=== PATIENT | female | born 1955 | race African-American/Black ===

== ENCOUNTER 2016-10-12 23:29 | Inpatient (IN) | payer MEDICAID ==
[~2016-10-12] VITALS: Ht 160 cm; Wt 49.9 kg
--- NOTE | ~2016-10-12 | CO ---
Unit #: [id number] #: [id number] Patient: DANYELL VALDEZ [id number] [address] [place], [place] [address] [id number] I MR#: [id number] NAME: DANYELL VALDEZ ROOM: 463 Age: 61 Sex: F Admission Date: 10/13/2016 : 1955 Attending Physician: Javier Govea M.D. Primary Care Physician: Primary Care Physician No Consultation Date: 10/13/2016 CONSULTATION REPORT PRIMARY REASON FOR CONSULTATION Acute cholecystitis. HISTORY OF PRESENT ILLNESS The patient is a 61-year-old woman, who presents to the emergency room with acute onset of epigastric abdominal pain radiating to the right back and flank. She denies any fevers or chills. She has had loss of appetite. She has had nausea and vomiting as well. There is no diarrhea. The pain is exacerbated by eating, relieved by nothing. She has not had any previous such symptoms. Radiology in the emergency room demonstrates acute cholecystitis with gallstones. REVIEW OF SYSTEMS A 10-point review is performed. This is negative other than what was already listed in the history of present illness. PAST MEDICAL HISTORY Significant for asthma. She has had no previous abdominal surgeries. MEDICATIONS See her nurse's notes. ALLERGIES She has no known medical allergies. SOCIAL HISTORY She denies alcohol or drug abuse. She is a smoker. FAMILY HISTORY Noncontributory. PHYSICAL EXAMINATION GENERAL: She is alert, in some mild abdominal discomfort. VITAL SIGNS: Temperature 97.9, pulse 72, respirations 18, blood pressure 194/96, she is 100% saturating on room air. HEENT: Pupils are equal and round. Extraocular motions are intact. NECK: Supple without adenopathy. HEART: Regular rate and rhythm. LUNGS: Clear to auscultation anteriorly. ABDOMEN: Soft. Tender in the right upper quadrant and epigastric area. There is some mild voluntary guarding. DIAGNOSTIC STUDIES LABORATORY RESULTS: Significant for a white blood cell count of 10.6. Unit #: [id number] #: [id number] Patient: DANYELL VALDEZ Liver function tests are within normal limits. IMAGING STUDIES: Ultrasound demonstrates cholecystitis with gallstones. ASSESSMENT AND PLAN The patient with acute onset of cholecystitis. I have discussed laparoscopic cholecystectomy with her, she is agreeable. This has been scheduled for today. Dictated by... Kenyatta Stanley/milagros TD: 10/14/2016 16:30 JOB #: [id number] CONSULTATION REPORT Page 1 of 1 X Javier Govea X CONSULTATION REPORT
--- NOTE | ~2016-10-12 | CR72 ---
[facility] A Service of [facility] & [facility] RADIOLOGY TEXT RESULTS PATIENT: DANYELL VALDEZ LOCATION: [facility] 463-01 : [birth year] UNIT #: [id number] AGE: [address]: Javier Govea SEX: F ORDER DR: [id number] [facility] [address] [facility]. [place], [place] [address] [id number] I MR#: [id number] Acc #: [id number] NAME: DANYELL VALDEZ : 1955 SEX: F STUDY DATE/TIME: 10/13/2016 2:40 UNIT: [facility] ROOM: [facility] STUDY DESCRIPTION: CR Chest Single View Portable Attending Physician: Javier Govea M.D. Ordering Physician: Dagoberto Grullon M.D. Primary Care Physician: No Primary Care Physician MEDICAL IMAGING REPORT This report is preliminary unless electronic signature is present EXAM Portable chest. HISTORY Chest pain and back pain for 2 days. FINDINGS Mild hyperinflation of both lungs. No infiltrates or effusions. Bilateral cervical ribs. Minimal right lower thoracic curve. Right shoulder prosthesis. IMPRESSION No acute findings. Mild hyperinflation of both lungs. Dictated by... Ambrosio Torres M.D. THIS IS AN ELECTRONICALLY VERIFIED REPORT Ambrosio Torres M.D. at 10/14/2016 4:48 AM ROSEANN/madeline TD: 10/13/2016 23:49 JOB #: [id number] MEDICAL IMAGING REPORT Page 1 of 1 COPY
--- NOTE | ~2016-10-12 | DS ---
Unit #: [id number] #: [id number] Patient: DANYELL VALDEZ [id number] [address] [address] [id number] I MR#: [id number] NAME: DANYELL VALDEZ ROOM: 46 Age: 61 Sex: F Admission Date: 10/13/2016 : 1955 Discharge Date: 10/16/2016 Attending Physician: Javier Govea M.D. Primary Care Physician: No Primary Care Physician DISCHARGE SUMMARY HISTORY AND EXAM Ms. Valdez is a 61-year-old female, presented to the emergency room with abdominal pain and was found to have acute cholecystitis. She was taken to the operating room by Dr. Govea, who did a laparoscopic cholecystectomy. Patient was afebrile throughout her hospital course but had abdominal distention and on the first postoperative day was unable to take adequate p.o. intake and had not regained bowel function. Bowels were stimulated, and her labs were rechecked. Labs were normal, and over the next 24 hours, she regained bowel function, was able to be advanced. At the time of discharge, she is afebrile. Her vital signs are stable. Her abdomen is soft. She is tolerating a regular diet. Her pathology showed no malignancy. She will be discharged home in stable condition today with instructions to undergo diet and activity as tolerated. She may shower, and she is to call [phone] for a followup appointment in 1-2 weeks. Prescription for hydrocodone was left for postop pain control. Dictated by... Shashi Seth M.D. RAMONA/angy TD: 10/16/2016 13:36 JOB #: [id number] DISCHARGE SUMMARY Page 1 of 1 X Shashi Seth MD X DISCHARGE SUMMARY
--- NOTE | ~2016-10-12 | CT2 ---
[facility] A Service of [facility] RADIOLOGY TEXT RESULTS PATIENT: DANYELL VALDEZ LOCATION: [facility] : 59 UNIT #: [id number] AGE: [address]: Javier Govea SEX: F ORDER DR: [id number] [place] [id number] [facility]. [place], [place] [address] [id number] I MR#: [id number] Acc #: [id number] NAME: DANYELL VALDEZ : 1955 SEX: F STUDY DATE/TIME: 10/13/2016 3:00 UNIT: [facility] ROOM: [facility] STUDY DESCRIPTION: CT Abd and Pelv W Cont Attending Physician: Javier Govea M.D. Ordering Physician: Dagoberto Grullon M.D. Primary Care Physician: Primary Care Physician No MEDICAL IMAGING REPORT This report is preliminary unless electronic signature is present EXAM CT abdomen and pelvis with IV contrast HISTORY Epigastric pain and back pain for 1 week. Nausea and vomiting. FINDINGS CT abdomen and pelvis was performed with IV contrast. This CT exam was performed with one or more of the following radiation dose reduction techniques: automatic exposure control, adjustment of mA and/or kV according to patient size, and iterative reconstruction. CT ABDOMEN: There is diffuse gallbladder wall thickening and moderate pericholecystic fluid and stranding, characteristic of cholecystitis. There are gallstones measuring up to 1.5 cm. Mild gallbladder distension and diffuse gallbladder wall mucosal enhancement. No biliary ductal dilatation. The liver, spleen, pancreas, kidneys, and adrenal glands are unremarkable. CT PELVIS: Normal appendix. No free fluid. The uterus and adnexa are unremarkable. No bowel dilatation. The urinary bladder is unremarkable. IMPRESSION 1. Cholecystitis with diffuse gallbladder wall thickening and pericholecystic fluid and diffuse gallbladder mucosal enhancement and mild gallbladder distension. 2. Gallstones measure up to 1.5 cm. 3. No acute findings in the remainder of the abdomen or pelvis. [facility] A Service [facility] RADIOLOGY TEXT RESULTS PATIENT: DANYELL VALDEZ LOCATION: [facility] : 59 UNIT #: [id number] AGE: [address]: Javier Govea SEX: F ORDER DR: Dictated by... Ambrosio Torres M.D. THIS IS AN ELECTRONICALLY VERIFIED REPORT Ambrosio Torres M.D. at 10/14/2016 4:49 AM ROSEANN/agatha TD: 10/13/2016 23:51 JOB #: [id number] MEDICAL IMAGING REPORT Page 1 of 1 COPY
--- NOTE | ~2016-10-12 | OR ---
Unit #: [id number] #: [id number] Patient: DANYELL VALDEZ [id number] [address] [place], [place] [address] [id number] I MR#: [id number] NAME: DANYELL VALDEZ ROOM: 463 Date of Procedure: 10/13/2016 Admission Date: 10/13/2016 Surgeon: Javier Govea M.D. : 1955 Attending Physician: Javier Govea M.D. OPERATIVE REPORT PREOPERATIVE DIAGNOSIS Acute cholecystitis. POSTOPERATIVE DIAGNOSIS Acute cholecystitis with intraperitoneal adhesions. PROCEDURE PERFORMED Laparoscopic cholecystectomy with adhesiolysis. ANESTHESIA General endotracheal. COMPLICATIONS None. ESTIMATED BLOOD LOSS Minimal. DESCRIPTION OF PROCEDURE After the patient was prepped and draped in usual fashion, 1 cm infraumbilical incision was made. A Veress needle was passed. The peritoneal cavity was insufflated in the usual fashion. A 5-mm port was placed. Under direct vision, an upper midline 11-mm port and two right upper quadrant 5-mm ports were placed. The gallbladder was inspected. It was acutely inflamed. The dome was grasped and retracted cephalad. There were dense adhesions to the right lobe of the liver and to the gallbladder consisting of omentum. Some of these were able to be stripped down bluntly, but the adhesions to the liver had to be taken down with sharp and electrocautery dissection in order to tear the capsule. Adhesions were all stripped down sequentially. The infundibulum was grasped, retracted, and exposed. The cystic duct dissected from surrounding tissues. The cystic artery was found just beneath and medial to this. The cystic duct was clipped doubly proximally, singly distally. The clips were not quite long enough to completely go across this. The 11-mm port was switched to a 12-mm port and the 12-mm stapler was brought forth, and the cystic duct was clipped doubly proximally, singly distally, and divided after the previous clips had been removed. The cystic artery was found just beneath and medial to this. This was clipped doubly proximally, singly distally, and divided. The gallbladder was taken off the bed using electrocautery and retrieved through the upper midline trocar site with an Endopouch. I did have to extend the incision about 1 cm to accommodate the large specimen. The right upper quadrant was inspected. There was no bleeding from the bed. Ports were removed under Unit #: [id number] #: [id number] Patient: DANYELL VALDEZ direct vision. There was no bleeding. The fascia at the upper midline trocar site was closed with 0 Vicryl. All wounds were closed with clips. All wounds were infiltrated with 0.5% Marcaine with epinephrine. Dressings were applied. The patient was taken to the recovery room in good condition. Dictated by... Kenyatta Stanley/milagros TD: 10/13/2016 14:00 JOB #: [id number] OPERATIVE REPORT Page 1 of 1 X Javier Govea PROCEDURE OPERATIVE NOTE
--- NOTE | ~2016-10-12 | US67 ---
[facility] A Service of [facility] & [facility] RADIOLOGY TEXT RESULTS PATIENT: DANYELL VALDEZ LOCATION: [facility] 463- : 59 UNIT #: [id number] AGE: [address]: Javier Govea SEX: F ORDER DR: [id number] [facility] [address] [facility]. [place], [place] [address] [id number] I MR#: [id number] Acc #: [id number] NAME: DANYELL VALDEZ : 1955 SEX: F STUDY DATE/TIME: 10/13/2016 0:32 UNIT: [facility] ROOM: [facility] STUDY DESCRIPTION: US Gallbladder Attending Physician: Javier Govea M.D. Ordering Physician: Dagoberto Grullon M.D. Primary Care Physician: No Primary Care Physician MEDICAL IMAGING REPORT This report is preliminary unless electronic signature is present EXAM Gallbladder ultrasound. HISTORY Right upper quadrant pain for three hours. Nausea and vomiting. FINDINGS Ultrasound examination of the gallbladder demonstrates an approximately 1.5 cm gallstone. No gallbladder distension or wall thickening. No biliary ductal dilatation. The common bile duct measures approximately 3 mm in diameter. No fluid adjacent to the gallbladder. IMPRESSION 1. Approximately 1.5 cm gallstone. 2. No gallbladder distension or wall thickening. No biliary ductal dilatation or fluid adjacent to the gallbladder. Dictated by... Ambrosio Torres M.D. THIS IS AN ELECTRONICALLY VERIFIED REPORT Ambrosio Torres M.D. at 10/14/2016 4:46 AM ROSEANN/madeline TD: 10/13/2016 23:04 JOB #: [id number] MEDICAL IMAGING REPORT Page 1 of 1 COPY
--- NOTE | ~2016-10-12 | EKG ---
PATIENT: DANYELL VALDEZ UNIT #: [id number] Ventricular Rate: 67 BPM Atrial Rate: 67 BPM P-R Interval: 128 ms QRS Duration: 76 ms Q-T Interval: 396 ms QTC Calculation(Bezet): 418 ms P [place]: 75 degrees Calculated R [place]: 57 degrees Calculated T [place]: 59 degrees Diagnosis Line: Normal sinus rhythm Diagnosis Line: Poor R wave progression questionable lead position Diagnosis Line: or body habitus Diagnosis Line: Borderline ECG Diagnosis Line: No previous ECGs available Diagnosis Line: Confirmed by ARIEL SHANKAR MD ([id number]) on Diagnosis Line: 10/14/2016 4:55:36 PM INTERPRETING MD: MIN
[2016-10-13 01:34] LABS: BASOPHIL% 0.3 % (0-2.5); DIFF IND NO; EOSINOPHIL# 0.2 X10e3 (0-0.7); EOSINOPHIL% 2.1 % (0.0-7.0); HEMATOCRIT 47.4 % (35.0-45.0); HEMOGLOBIN 15.9 gm/dL (12.0-16.0); LYMPHOCYTE# 2.4 X10e3 (1.0-3.5); LYMPHOCYTE% 22.4 % (17.0-45.0); MEAN CELL VOLUME 95.5 FL (83-96); MEAN CORPUSCULAR HEMOGLOBIN 32.1 PG (28-34); MEAN CORPUSCULAR HGB CONC 33.6 g/dL (30-36); MEAN PLATELET VOLUME 9.8 FL (6.5-11.5); MONOCYTE# 0.5 X10e3 (0-1.0); NEUTROPHIL# 7.4 X10e3 (1.5-7.1); NEUTROPHIL% 70.2 % (40-75); PLATELET COUNT 195 X10e3 (140-420); RED BLOOD COUNT 4.97 X10e (3.90-5.30); RED CELL DISTRIBUTION WIDTH 14.1 % (11.0-15.5); WHITE BLOOD COUNT 10.6 X10e3 (4.0-10.5)
[2016-10-13 01:46] LABS: POC - CKMB 1.8 ng/mL (0.0-7.9); POC - TROPONIN <0.05 ng/mL (<=0.05)
[2016-10-13 01:55] LABS: ALBUMIN SERUM 4.7 g/dL (3.5-5.0); BILIRUBIN, DIRECT 0.1 mg/dL (0.0-0.2); BILIRUBIN,INDIRECT 0.5 mg/dL (0.0-0.9); BILIRUBIN,TOTAL 0.6 mg/dL (0.2-2.0); BUN/CREATININE RATIO 17.14; CALCIUM SERUM 9.7 mg/dL (8.4-10.2); CREATININE SERUM 0.7 mg/dL (0.6-1.4); GLOM FILT RATE Estimated 109.9 mL/min (>60); PROTEIN TOTAL SERUM 8.5 g/dL (6.0-8.3)
[2016-10-13 04:52] LABS: POC - TROPONIN <0.05 ng/mL (<=0.05)
[2016-10-14 08:12] LABS: MEAN CELL VOLUME 95.6 FL (83-96); MEAN CORPUSCULAR HEMOGLOBIN 32.4 PG (28-34); MEAN CORPUSCULAR HGB CONC 33.9 g/dL (30-36); MEAN PLATELET VOLUME 9.3 FL (6.5-11.5); RED BLOOD COUNT 3.97 X10e (3.90-5.30); RED CELL DISTRIBUTION WIDTH 13.7 % (11.0-15.5); WHITE BLOOD COUNT 6.2 X10e3 (4.0-10.5)
[2016-10-14 08:16] LABS: HEMOGLOBIN 12.9 gm/dL (12.0-16.0)
[2016-10-14 08:41] LABS: ALBUMIN SERUM 3.3 g/dL (3.5-5.0); BILIRUBIN,TOTAL 0.8 mg/dL (0.2-2.0); BUN/CREATININE RATIO 13.75; CALCIUM SERUM 8.6 mg/dL (8.4-10.2); CREATININE SERUM 0.8 mg/dL (0.6-1.4); GLOM FILT RATE Estimated 93.6 mL/min (>60); POTASSIUM 3.8 mmol/L (3.5-5.1); PROTEIN TOTAL SERUM 6.2 g/dL (6.0-8.3)
[2016-10-16 03:37] LABS: BASOPHIL% 0.5 % (0-2.5); EOSINOPHIL# 0.3 X10e3 (0-0.7); EOSINOPHIL% 4.9 % (0.0-7.0); HEMATOCRIT 37.6 % (35.0-45.0); HEMOGLOBIN 12.8 gm/dL (12.0-16.0); LYMPHOCYTE# 3.1 X10e3 (1.0-3.5); LYMPHOCYTE% 51.3 % (17.0-45.0); MEAN CELL VOLUME 94.3 FL (83-96); MEAN CORPUSCULAR HGB CONC 33.9 g/dL (30-36); MEAN PLATELET VOLUME 9.6 FL (6.5-11.5); MONOCYTE# 0.6 X10e3 (0-1.0); MONOCYTE% 9.7 % (3.0-12.0); NEUTROPHIL% 33.6 % (40-75); PLATELET COUNT 185 X10e3 (140-420); RED BLOOD COUNT 3.98 X10e (3.90-5.30); RED CELL DISTRIBUTION WIDTH 13.6 % (11.0-15.5)
[2016-10-16 03:38] LABS: DIFF IND YES
[2016-10-16 03:51] LABS: ALBUMIN SERUM 3.5 g/dL (3.5-5.0); BILIRUBIN,TOTAL 0.5 mg/dL (0.2-2.0); BUN/CREATININE RATIO 14.28; CREATININE SERUM 0.7 mg/dL (0.6-1.4); GLOM FILT RATE Estimated 109.9 mL/min (>60); PHOSPHOROUS 4.5 mg/dL (2.5-4.6); POTASSIUM 4.1 mmol/L (3.5-5.1); PROTEIN TOTAL SERUM 6.5 g/dL (6.0-8.3)
[2016-10-16 04:01] LABS: ANISOCYTOSIS SL
[2016-10-16 04:02] LABS: PLATELET ESTIMATE NORMAL (NORMAL); ROULEAUX SLIGHT
[2016-10-16] MEDS ORDERED: HYDROCODON-ACE1 EAC7 PO (09:09)
== END 2016-10-16 12:55 | disposition home or self-care (01) | DRG 419 ==
LOC: CED 23:29 → C4C 10-13 05:00 → CED 10-13 05:28 → C4C 10-16 12:55
PROVIDERS: Emergency Medicine; Specialist; Surgery
PROC: 0FT44ZZ Resection of Gallbladder, Percutaneous Endoscopic Approach (ICD-10-PCS; principal; 2016-10-13 07:30)
DX: K80.00 Calculus of gallbladder with acute cholecystitis without obstruction (principal); F17.200 Nicotine dependence, unspecified, uncomplicated; J45.909 Unspecified asthma, uncomplicated
CPT/HCPCS: 36415; 71010; 74177; 76705; 80048; 80053; 80076; 82150; 82553; 83690; 83735; 84100; 84484; 85025; 85027; 88304; 93005; 96374; 96375; 99285; J0330; J1885; J2250; J2270; J2405; J2543; J2710; J3010; Q9967